=== PATIENT | female | born 2000 | race Caucasian/White ===

== ENCOUNTER → 2020-12-07 | Outpatient (CLI) | payer BC ==
--- NOTE | 2020-12-07 11:03 | RAD ---
Renal ultrasound 12/07/2020 INDICATION: Overactive bladder COMPARISON STUDY: None Discussion: Ultrasound evaluation of the kidneys was performed. Static images are submitted to PACS. Visualized aorta and IVC are unremarkable. The right kidney measures 9.5 x 4.5 x 3.6 cm. Left kidney measures 11.9 x 3.5 x 4.5 cm. Left renal morphology suggests a duplicated collecting system, though t his is somewhat poorly delineated by ultrasound. No hydronephrosis, nephrolithiasis, or mass is ident ified by ultrasound. The bladder is unremarkable in appearance. Prevoid volume 1 47 cc, postvoid volu me essentially completely decompressed. Bilateral ureteral jets were identified. IMPRESSION: 1. 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 CT urography could be performed for confi rmation if clinically relevant. 2. Otherwise unremarkable sonographic evaluation Electronically signed by: Aniket Fitch MD (12/07/2020 11:01 AM) [id number]
== END ==
LOC: US 08:46
PROVIDERS: ATTEND Physician Assistant Medical
DX: N32.81 Overactive bladder (principal)
CPT/HCPCS: 76770

== ENCOUNTER → 2020-12-10 | Outpatient (CLI) | payer BC ==
--- NOTE | 2020-12-10 08:59 | RAD ---
EXAM: XR RIBS AND CHEST 4+VIEWS 12/10/2020 8:21 AM CLINICAL INDICATION: Bilateral rib pain COMPARISON: None TECHNIQUE: PA view the chest and AP and oblique views of the right left ribs FINDINGS: Heart is normal in size. Lungs are well-expanded and clear. No pleural effusion or pneumot horax. There is mild thoracolumbar scoliosis. No displaced rib fracture identified. IMPRESSION: No displaced rib fracture or acute cardiopulmonary abnormality. Electronically signed by: Alvina Stewart MD (12/10/2020 8:57 AM) [id number]
== END ==
LOC: RAD 08:01
PROVIDERS: ATTEND Physician Assistant Medical
DX: R07.89 Other chest pain (principal)
CPT/HCPCS: 71111